=== PATIENT | male | born 1965 | race Caucasian/White ===

== ENCOUNTER 2021-06-26 09:11 | Emergency (ER) | payer BC ==
[~2021-06-26] VITALS: Ht 177.8 cm; Wt 95.8 kg
[2021-06-26 09:16] VITALS: BP 110/73
[2021-06-26] MEDS ORDERED: METH4TAB3 PO (11:55)
[2021-06-26] MEDS ORDERED: FLUT16SP2 BOTHNARES (11:55)
== END 2021-06-26 12:06 | disposition home or self-care (01) ==
LOC: ER 09:12
DX: J06.9 Acute upper respiratory infection, unspecified (principal); Z20.822 Contact with and (suspected) exposure to COVID-19; F32.9 Major depressive disorder, single episode, unspecified
CPT/HCPCS: 87635; 99283; C9803